=== PATIENT | male | born 2000 | race Hispanic/Latino ===

== ENCOUNTER 2022-08-09 09:26 | Emergency (ER) | payer BC ==
[~2022-08-09] VITALS: Ht 170.2 cm; Wt 54.4 kg
[2022-08-09 10:23] LABS: BASOPHILS % (AUTO) 0.3 % (0.0-5.0); EOSINOPHILS % (AUTO) 0.9 % (0.0-8.0); HEMATOCRIT 39.7 % (42-54); MEAN CORPUSCULAR HEMOGLOBIN 25.3 pg (27.0-33.0); MEAN CORPUSCULAR VOLUME 79.2 fL (80-100); MONOCYTES % (AUTO) 6.1 % (3.0-13.0); NEUTROPHILS % (AUTO) 69.1 % (40.0-77.0); PLATELET COUNT (AUTO) 280 K/uL (130-400); RED BLOOD CELL COUNT(AUTO) 5.01 MIL/uL (4.50-6.20); RED CELL DISTRIBUTION WIDTH 14.2 % (11.0-15.5)
[2022-08-09] MEDS ORDERED: KETOROLAC 30MG VIAL (30MG/ML) IVP ONE (10:30)
[2022-08-09 10:39] LABS: ALBUMIN 3.4 g/dL (3.5-5.0); CREATININE 0.9 mg/dL (0.5-1.5); CRP QUANTITATIVE 71.2 mg/L (0.00-9.0); POTASSIUM 3.2 mmol/L (3.5-5.1); TOTAL PROTEIN, SERUM 8.6 g/dL (6.0-8.3)
[2022-08-09] MEDS ORDERED: POTASSIUM BICARB/CIT AC 25 MEQ TABLET.EFF PO ONE (11:00)
[2022-08-09 11:25] VITALS: BP 110/56
[2022-08-09 11:41] LABS: ERYTHROCYTE SEDIMENTATION RATE 67 MM/HR (0-15)
[2022-08-09] MEDS ORDERED: DEXAMETHASONE SOD PHOSPHATE 4 MG/ML 1ML VIAL IV SCH (12:00)
[2022-08-09] MEDS ORDERED: IBUP100O27 PO (12:33)
== END 2022-08-09 12:45 | disposition home or self-care (01) ==
LOC: EDH 09:26
DX: M70.62 Trochanteric bursitis, left hip (principal); Y93.89 Activity, other specified
CPT/HCPCS: 99284; 96374; 96375; 80053; 85025; 85651; 86140; 36415; J1100; J1885